=== PATIENT | female | born 1955 | race Two or more races ===

== ENCOUNTER → 2017-04-10 | Outpatient (CLI) | payer BC ==
[2017-04-10 09:31] LABS: Basophils # (auto) 0.1 uL; Eosinophils # (auto) 0.1 uL; Hemoglobin 11.2 g/dL (12.2-16.2); Monocytes # (auto) 0.5 uL; Monocytes % (auto) 3.8 % (0.0-12.0)
[2017-04-10 09:37] LABS: Basophils % (auto) 0.4 % (0.0-2.0); Hematocrit 36.1 % (36.0-46.0); Lymphocytes # (auto) 1.1 uL; Lymphocytes % (auto) 7.9 % (10.0-50.0); Mean Corpuscular Hemoglobin 27.8 pg (28.0-32.0); Mean Corpuscular Volume 89.6 fL (80.0-100.0); Mean Platelet Volume 8.4 fL (6.9-10.8); Neutrophils % (auto) 86.9 % (37.0-80.0); Platelet Count (auto) 196 10^3/uL (140-450); Red Cell Distribution Width 21.5 % (11.8-14.3); White Blood Cell 13.8 10^3/uL (4.4-10.8)
[2017-04-10 09:52] LABS: Albumin 3.2 g/dL (3.4-5.0); BUN/Creatinine Ratio 31.1; Bilirubin, Total 0.5 mg/dL (0.2-1.0); Calcium 8.6 mg/dL (8.5-10.1); Potassium 3.9 mmol/L (3.5-5.1); Total Protein 7.2 g/dL (6.4-8.2); Uric Acid 7.9 mg/dL (2.6-6.0)
== END | disposition home or self-care (01) ==
LOC: LAB 09:04
DX: I10 Essential (primary) hypertension (principal); M10.00 Idiopathic gout, unspecified site; M25.50 Pain in unspecified joint; D64.9 Anemia, unspecified; M06.9 Rheumatoid arthritis, unspecified; Z79.899 Other long term (current) drug therapy
CPT/HCPCS: 36415; 80053; 84550; 85025; 85652; 86141